=== PATIENT | male | born 1995 ===

== ENCOUNTER 2019-12-11 08:59 | Outpatient (CLI) | payer OTHER, SELFPAY ==
[2019-12-14 18:08] LABS: SARS-CoV-2 RNA Undetected (Undetected); SARS-CoV-2 Specimen Source Nasopharynx
== END 2019-12-11 09:19 ==
PROVIDERS: PCP Family Medicine; Visit Provider Family Medicine
DX: Z11.59 Encounter for screening for other viral diseases (principal)
CPT/HCPCS: U0003